=== PATIENT | male | born 1960 | race Caucasian/White ===

== ENCOUNTER 2019-05-20 12:24 | Emergency (ER) | payer MEDICAID ==
[~2019-05-20] VITALS: Ht 175.3 cm; Wt 63.5 kg
[2019-05-20 12:24] VITALS: BP_SYST 131
[2019-05-20 12:42] VITALS: BP_SYST 128
== END 2019-05-20 12:46 ==
LOC: SED 12:24
DX: Z48.01 Encounter for change or removal of surgical wound dressing (principal)
CPT/HCPCS: 99283